=== PATIENT | female | born 1940 | race Caucasian/White ===

== ENCOUNTER 2016-05-26 13:16 | Emergency (ER) | payer MEDICARE, OTHER ==
[2015-04-07 13:04] VITALS: BMI 33.5
[~2016-05-26 13:16] MED LIST: CARDURA1 MG PO; CATAPRES0.1 MG PO; IMDUR30 MG PO; LASIX20 MG PO; LIPITOR40 MG PO; LISINOPRIL10 MG PO; LOPRESSOR25 MG PO; MOBIC7.5 MG PO; NITROSTAT0.4 MG; NORVASC5 MG PO; NYSTATIN1 PWD TOPICAL; PLAVIX75 MG PO; PRILOSEC20 MG PO; SYNTHROID25 MCG PO; TIROSINT88 MCG PO; ZOLOFT100 MG PO
[2016-05-26 14:13] LABS: BASOPHILS 0.5 % (0.0-2.0); EOSINOPHILS 3.9 % (0-7); HEMATOCRIT 41.9 % (36.0-48.0); HEMOGLOBIN 13.9 g/dL (12-16); IMMATURE GRANULOCYTES 0.2 % (0-5); LYMPHOCYTES 15.5 % (15-50); MCH 32.4 pg (26.0-34.0); MCHC 33.2 g/dL (31.0-37.0); MCV 97.7 fL (80.0-100.0); MEAN PLATELET VOLUME 10.8 fL (7.4-10.4); MONOCYTES 8.8 % (2-11); NEUTROPHILS 71.1 % (40-80); RBC 4.29 10x6/uL (4.00-5.40); RDW 13.9 % (11.5-14.5); WBC 6.5 10x3/uL (4.8-10.8)
[2016-05-26 14:19] LABS: PLATELET COUNT 155 10x3/uL (130-400)
[2016-05-26 15:09] LABS: ALBUMIN 3.7 g/dL (3.4-5.0); ALKALINE PHOSPHATASE 83 U/L (46-116); ALT (SGPT) 17 U/L (10-68); BILIRUBIN - TOTAL 0.43 mg/dL (0.2-1.3); CALC OSMOLALITY 286 mosm/kg (275-300); CALCIUM 8.7 mg/dL (8.5-10.1); CARBON DIOXIDE 26.3 mmol/L (21.0-32.0); CHLORIDE - SERUM 104 mmol/L (98-107); CREATININE - SERUM 0.7 mg/dL (0.6-1.3); GLUCOSE 119 mg/dL (74-106); POTASSIUM - SERUM 3.4 mmol/L (3.5-5.1); PROTEIN - SERUM 6.6 g/dL (6.4-8.2); SODIUM 142 mmol/L (136-145); UREA NITROGEN 20 mg/dL (7-18); eGFR NON AFRICAN AMERICAN 86 mL/min (90-120)
[2016-05-26 15:23] LABS: CKMB 1.2 U/L (0.0-3.6); CREATINE KINASE 78 UL (21-215); TROPONIN-I 0.023 ng/mL (0.000-0.060)
== END 2016-05-26 17:12 | disposition home or self-care (01) ==
LOC: D.ER 13:16
PROVIDERS: Emergency Medicine
DX: R07.89 Other chest pain (principal); S29.011A Strain of muscle and tendon of front wall of thorax, initial encounter; X58.XXXA Exposure to other specified factors, initial encounter; Y93.89 Activity, other specified; Y92.89 Other specified places as the place of occurrence of the external cause; I25.810 Atherosclerosis of coronary artery bypass graft(s) without angina pectoris; F32.9 Major depressive disorder, single episode, unspecified; I10 Essential (primary) hypertension; E78.5 Hyperlipidemia, unspecified; I45.10 Unspecified right bundle-branch block

== ENCOUNTER 2016-10-01 19:05 | Observation (INO) | payer MEDICARE, OTHER ==
[~2016-10-01] VITALS: Ht 160 cm; Wt 80.7 kg
--- NOTE | ~2016-10-01 | HEMODYNAMI ---
PATIENT:REBECA ANAYA MEDICAL RECORD: [id number] : 36 [id number] ADMISSION DATE: 10/01/16 Generatedon:10/03/201614:21 Patient name: REBECA ANAYA Patient #: [id number] SSN: : 1940 Date of study: 10/03/2016 Page: Of Hemodynamic Procedure Report Patient Data Patient Demographics Procedure consent was obtained First Name: REBECA Gender: Female Last Name: HÉCTOR : 1940 Middle Initial: A Age: 75 year(s) Patient #: [id number] Race: Ethnicity: or Additional ID: [id number] Contact details [address]: [address] [place] [address] State: [place] City: [place] Zip code: [address] Past Medical History Allergies: No known allergies Admission Admission Data Admission Date: 10/01/2016 Admission Time: 21:33 [facility] Lab Result Date: 10/03/2016 Lab Result Time: 0:00 Biochemistry Name Units Result Min Max BUN mg/dl 27 --(----)-* 7 18 Creatinine mg/dl 1 --(--*-)-- 0.6 1.3 CBC Name Units Result Min Max Hemoglobin g/dl 13.4 -*(----)-- 13.5 17.5 Procedure Procedure Types Cath Procedure Diagnostic Procedure C [facility] w/Coronaries w/Grafts Aortic Root Angiography Miscellaneous Procedures Moderate Sedation up to 30 minutes Procedure Description Procedure Date Procedure Date: 10/03/2016 Procedure Start Time: 13:57 Procedure End Time: 14:21 Procedure Staff Name Function Jesus Lara MD Performing Physician Becca Olivera RN Nurse Francisco Gifford RT Monitor Camilo Rome RT Scrub Procedure Data Cath Procedure Fluoroscopy Diagnostic fluoroscopy Total fluoroscopy Time: 3.1 time: 3.1 min min Diagnostic fluoroscopy Total fluoroscopy dose: 547 dose: 547 mGy mGy Contrast Material Contrast Material Type Amount (ml) Isovue 300 140 Entry Location Entry Primary Successful Side Size Upsize Upsize Entry Closure Succes sful Closure Location (Fr) 1 (Fr) 2 (Fr) Remarks Device Remarks Femoral Right 5 Fr Exoseal artery Estimated blood loss: 10 ml Diagnostic catheters Device Type Used For End Catheter Placement Cordis 5Fr JL 4.0 Procedure Catheter (MP) Cordis 5Fr 3DRC Catheter Procedure (MP) Diagnostic Infinity 5Fr Procedure JL 5 catheter Cordis 5Fr Pigtail Procedure Catheter (MP) Diagnostic Infinity 5Fr Procedure AR MOD Catheter Procedure Complications No complications Procedure Medications Medication Administration Route Dosage Oxygen NC 2 l/min Heparin Flush Bag added to field 2 bags (1000units/500ml NS) Lidocaine 2% added to field 20 Versed I.V. 1 mg Fentanyl I.V. 50 mcg Versed I.V. 1 mg Fentanyl I.V. 50 mcg Fentanyl I.V. 50 mcg Hemodynamics Rest HGB: 13.4 (g/dl) Heart Rate: 79 (bpm) Pressure Samples Time Site Value (mmHg) Purpose Heart Use Rate(bpm) 14:02 AO 50/19(32) Snapshot 73 14:08 LV 93/16,17 Snapshot 69 14:09 AO 86/55(69) Pullback 79 14:09 LV 85/11,14 Pullback 79 Gradients Valve Time Site 1 Site 2 Mean SEP/DFP Peak To Heart Use (mmHg) (sec/min) Peak Rate (mmHg) (bpm) Aortic 14:09 LV AO 0 79 85/11,14 86/55(69) Calculations Valve P-P Mean Valve Index Valve Source Name Gradient Area Flow (cm2) Aortic 0 0 Snapshots Pre Cath Intra NCS Post Cath Vital Signs Time Heart Resp SPO2 NIBP (mmHg) Rhythm Pain Sedation Rate (ipm) (%) Status Level (bpm) 13:46:02 86 17 96 157/90(143) NSR 0 (11) 10(A) , No pain 13:50:14 76 16 97 152/92(127) NSR 0 (11) 10(A) , No pain 13:54:38 93 21 97 149/81(118) NSR 0 (11) 10(A) , No pain 13:58:48 78 16 94 124/99(117) NSR 0 (11) 10(A) , No pain 14:03:02 87 16 95 102/65(80) NSR 0 (11) 9(A) , No pain 14:07:10 79 19 96 96/59(78) NSR 0 (11) 9(A) , No pain 14:11:20 80 19 95 97/57(75) NSR 0 (11) 9(A) , No pain 14:15:23 85 19 95 97/78(89) NSR 0 (11) 9(A) , No pain 14:19:31 84 16 96 112/62(89) NSR 0 (11) 9(A) , No pain Medications Time Medication Route Dose Verified Delivered Reason Notes Effec tiveness by by 13:49:13 Oxygen NC 2 Jesus Becca Per l/min St. Neal Olivera RN physician 13:49:23 Heparin Flush added 2 Jesus Jesus used for Bag to bags [facility] procedure (1000units/500ml field MD NIXON NS) 13:49:31 Lidocaine 2% added 20ml Jesus Jesus used for to vial [facility] procedure field MD NIXON 13:53:34 Versed I.V. 1 mg Jesus Becca for JaneNeal Olivera RN sedation 13:53:40 Fentanyl I.V. 50 Jesus Becca for [facility] Neal Olivera RN sedation 13:55:57 Versed I.V. 1 mg Jesus Becca for MclaughlinRamez Olivera RN sedation 13:56:00 Fentanyl I.V. 50 Jesus [place]cca [place] [facility] JaneNeal Olivera RN sedation 13:58:08 Fentanyl I.V. 50 Jesus Becca for [facility] Jarod ALVAREZ sedation Procedure Log Time Note 13:10:58 Camilo Rome RT(R) sent for patient. Start room use. 13:21:05 Time tracking: Regular hours 13:21:09 Plan of Care:Hemodynamics will remain stable., Cardiac rhythm will remain stable., Comfort level will be maintained., Respiratory function will remain adequate., Patient/ family verbilizes understanding of procedure., Procedure tolerated without complication., Recovers from procedure without complications.. 13:27:27 Lab results completed and on chart. 13:28:01 Lab Result : BUN 27 mg/dl 13:28:01 Lab Result : Creatinine 1 mg/dl 13:28:01 Lab Result : Hemoglobin 13.4 g/dl 13:28:11 H&P Date Dictated: 10/01/2016 Within 30 days and on chart.. 13:33:36 Patient received from PCU to CCL 3 Alert and oriented. Tansferred to table in Supine position. 13:33:38 Warm blankets applied, and mary hugger turned on for patient comfort. 13:33:39 Correct patient and procedure confirmed by team. 13:33:40 Signed procedure consent form obtained from patient. 13:33:42 ECG and BP/O2 sat monitors applied to patient. 13:44:54 Vital chart was started 13:44:56 Baseline sample Acquired. 13:44:59 Rhythm: sinus rhythm 13:45:01 Full Disclosure recording started 13:49:13 Oxygen 2 l/min NC was administered by Becca Olivera RN; Per physician; 13:49:23 Heparin Flush Bag (1000units/500ml NS) 2 bags added to field was administered by Jesus Lara MD; used for procedure; 13:49:31 Lidocaine 2% 20ml vial added to field was administered by Jesus Lara MD; used for procedure; 13:50:41 Pre-procedure instructions explained to patient. 13:50:42 Pre-op teaching completed and patient verbalized understanding. 13:50:45 Family in patients room. 13:50:46 Patient NPO since Midnight. 13:50:47 Is the patient allergic to Iodine/contrast media? No. 13:50:53 Is patient on blood thinner?Unknown 13:50:55 Patient diabetic? No. 13:50:58 Patient not . Patient is over age 55. 13:50:59 Previous problem with sedation/anesthesia? No ? 13:51:00 Snore? Yes 13:51:01 Sleep apnea? Yes 13:51:02 Deviated septum? No 13:51:02 Opens mouth fully? Yes 13:51:03 Sticks out tongue? Yes 13:51:05 Airway obstruction? No ? 13:51:07 Dentures? No ? 13:51:10 Pre procedure: right dorsailis pedis pulse 1+ Palpable, but thready & weak; easily obliterated 13:51:27 Unable to gain radial access last procedure. 13:51:31 Patient pain scale 0/10 ?. 13:51:38 IV patent on arrival in right antecubital with 0.9% NaCl at [facility]. 13:51:42 Right groin area was prepped with chlora-prep and draped in sterile fashion 13:51:43 Alarms reviewed by R. N. 13:51:44 Sharps counted by scrub and verified by R.N. 13:51:50 Use device set Femoral Dx 13:51:51 Tegaderm 4 x 4 opened to sterile field. 13:51:52 Acist Hand Control opened to sterile field. 13:51:52 Acist Manifold opened to sterile field. 13:51:53 Acist Syringe opened to sterile field. 13:51:53 Bag Decanter opened to sterile field. 13:51:54 Medline Cath Pack opened to sterile field. 13:51:54 Terumo 5Fr Saxton Sheath opened to sterile field. 13:51:56 St Cj 260cm J .035 wire opened to sterile field. 13:51:57 Diagnostic Infinity 5Fr Multipack catheter opened to sterile field. 13:53:16 --------ALL STOP TIME OUT------ 13:53:16 Final Timeout: patient, procedure, and site verified with staff and physician. All members of the team are in agreement. 13:53:18 Right groin site verified by team. 13:53:20 Physical assessment completed. ASA score P 2 - A patient with mild systemic disease as per Jesus Lara MD. 13:53:23 Sedation plan: IV Moderate Sedation Versed, Fentanyl 13:53:34 Versed 1 mg I.V. was administered by Becca Olivera RN; for sedation; 13:53:40 Fentanyl 50 mcg I.V. was administered by Becca Olivera RN; for sedation; 13:55:57 Versed 1 mg I.V. was administered by Becca Olivera RN; for sedation; 13:56:00 Fentanyl 50 mcg I.V. was administered by Becca Olivera RN; for sedation; 13:57:19 Procedure started. 13:57:22 Local anesthetic to right femoral artery with Lidocaine 2% by Jesus Lara MD.INITIAL ACCESS ONLY 13:58:08 Fentanyl 50 mcg I.V. was administered by Becca Olivera RN; for sedation; 13:58:17 Zero performed for pressure channel P1 14:01:41 A 5 Fr sheath was inserted into the Right Femoral artery 14:01:55 A Cordis 5Fr JL 4.0 Catheter (MP) was advanced over the wire and used for Procedure. 14:04:22 Catheter removed. unable to cannulate vessel. 14:04:28 A Cordis 5Fr 3DRC Catheter (MP) was advanced over the wire and used for Procedure. 14:04:45 SVG to RCA occluded. 14:04:48 Catheter removed. 14:05:00 A Diagnostic Infinity 5Fr JL 5 catheter was advanced over the wire and used for Procedure. 14:06:06 LCA angiography performed. 14:06:58 Catheter removed. 14:07:06 A Cordis 5Fr Pigtail Catheter (MP) was advanced over the wire and used for Procedure. 14:08:13 Zero performed for pressure channel P1 14:08:53 LV angiography performed. 14:08:55 LV gram done using SIDDIQI 14:09:06 EF : 55 % 14:10:07 Aortic Root visualized 14:10:11 Injector settings: Ml/sec: 15, Volume: 30, 14:10:15 Catheter removed. 14:12:09 A Diagnostic Infinity 5Fr AR MOD Catheter was advanced over the wire and used for Procedure. 14:14:22 RCA angiography performed. 14:14:33 Catheter removed. 14:14:44 Cordis 5Fr Exoseal opened to sterile field. 14:14:54 Sheath removed intact; hemostasis achieved with Exoseal to the Right Femoral artery. 14:14:56 Procedure ended.(Physican Out) 14:16:59 Fluoroscopy time 03.10 minutes. 14:17:08 Fluoroscopy dose: 547 mGy 14:17:08 Flurop Dose total: 547 14:17:13 Contrast amount:Isovue 300 140ml. 14:17:15 Sharps counted by scrub and verified by R.N. 14:17:16 Insertion/operative site no bleeding no hematoma. 14:17:19 Post-op/insertion site Right Femoral artery dressed using a 4 x 4 and Tegaderm. 14:17:20 Post Procedure Pulses reassessed and unchanged 14:17:23 Post-procedure physical assessment completed. ASA score P 2 - A patient with mild systemic disease as per Jesus Lara MD. 14:17:26 Post procedure rhythm: unchanged. 14:17:28 Estimated blood loss: 10 ml 14:17:29 Post procedure instruction explained to patient.Patient verbalizes understanding. 14:17:29 Patient needs reinforcement of post procedure teaching. 14:17:51 Procedure type changed to Cath procedure, Diagnostic procedure, LHC, LHC w/Coronaries w/Grafts, Aortic Root Angiography, Miscellaneous Procedures, Moderate Sedation up to 30 minutes 14:17:54 Procedure Complication : No complications 14:18:26 Procedure and supply charges have been captured, reviewed, submitted and are correct. 14:20:55 Vital chart was stopped 14:20:55 See physician's report for complete and final results. 14:20:57 Report given to PCU. 14:21:01 Patient transfered to PCU with Bed. 14:21:03 Procedure ended. 14:21:03 Full Disclosure recording stopped 14:21:07 End room use (Document Last) Device Usage Item Name Manufacture Quantity Catalog Hospital Part Current Minimal Lo t# / Number Charge Number Stock Stock Serial# Code Tegade 4 1 [id number] 237042 427897 5 x 4 Acist Hand Acist 1 30290 943422 869914 015100 5 Control [employer] Inc Acist Acist 1 92658 543657 263780 420616 5 Manifold [employer] Inc Acist Acist 1 17361 653288 077098 710500 20 Syringe [employer] Inc Bag Microtek 1 2002S 207106 40220 109477 5 Decanter [employer] Inc[employer] Medline Cardinal 1 [id number] 169721 88881 491077 5 Cath Pack Health Terumo 5Fr Terumo 1 [id number] 076255 283668 159486 [address] Cj St Cj 1 107450 601988 055831 957066 30 260cm J .035 wire Diagnostic Cardinal 1 [id number] 497926 50094 532557 30 Infinity Health 5Fr Multipack catheter Cordis 5Fr Cardinal 1 689451 5 JL 4.0 Health Catheter (MP) Cordis 5Fr Cardinal 1 212708 5 3DRC Health Catheter (MP) Diagnostic Cardinal 1 [id number] 261219 931773 476096 5 Infinity Health 5Fr JL 5 catheter Cordis 5Fr Cardinal 1 299237 5 Pigtail Health Catheter (MP) Diagnostic Cardinal 1 [id number] 754708 179573 047412 15 NoiseFreeity Health 5Fr AR MOD Catheter Cordis 5Fr Cardinal 1 EX500 715798 627525 015175 10 Flatora Signature Audit [place] Stage Time Signature Unsigned Intra-Procedure 10/03/2016 Francisco Gifford 2:21:25 PM RT(R) Signatures Monitor : Francisco Giffodr RT Signature : Date : Time : [place] [id number] [facility] [place] [address]
--- NOTE | ~2016-10-01 | OP ---
PATIENT NAME: REBECA ANAYA MEDICAL RECORD: [id number] :36 LOCATION:D.M2 D.2115 ADMISSION DATE:10/01/16 SURGEON: GRAY CARRASCO MD DATE OF OPERATION: 10/03/2016 PROCEDURE: Left heart catheterization, selective coronary angiography, right femoral approach. CATHETERS: A 5-Kiswahili sheath, 5/4 left and right Librado, 5/4 pig. The procedure was well tolerated. The patient returned to the aguilar, sheath removed. ExoSeal device placed. FINDINGS: Left ventriculography in the 30-degree SIDDIQI view: Normal wall motion, normal systolic function. On aortic root injection, aortic root shows no open grafts with normal sized roots, mild tortuosity. CORONARY ANATOMY: LEFT MAIN: Left main is free of disease. LAD: Free of disease in the diagonal system. CIRCUMFLEX: Free of disease in the marginal system. RIGHT CORONARY ARTERY: Codominant system free of disease. IMPRESSION: 1. Normal aortic root with exception of mild tortuosity. 2. Normal left ventricular function. 3. Normal coronary anatomy. TRANSINT:[id number] Voice Confirmation ID: [id number] DOCUMENT ID: [id number] GRAY CARRASCO MD CC: [id number] DICTATION DATE: 10/03/16 1431 TRANSPORTATION ATTENDANT: 10/03/16 1744 DIS IN 10/03/16 [facility] [address] [place] [address]
[~2016-10-01 19:05] MED LIST changes: -NITROSTAT0.4 MG; +NITROSTAT0.4 MG SL
[2016-10-01 19:43] LABS: BASOPHILS 0.3 % (0-2); EOSINOPHILS 4.1 % (0-7); HEMATOCRIT 42.8 % (36.0-48.0); HEMOGLOBIN 14.3 g/dL (12-16); IMMATURE GRANULOCYTES 0.3 % (0-5); LYMPHOCYTES 23.5 % (15-50); MCH 32.2 pg (26.0-34.0); MCHC 33.4 g/dL (31.0-37.0); MCV 96.4 fL (80.0-100.0); MONOCYTES 8.3 % (2-11); NEUTROPHILS 63.5 % (40-80); PLATELET COUNT 161 10x3/uL (130-400); RBC 4.44 10x6/uL (4.00-5.40); RDW 13.2 % (11.5-14.5); WBC 6.2 10x3/uL (4.8-10.8)
[2016-10-01 20:08] LABS: ALBUMIN 3.7 g/dL (3.4-5.0); ALKALINE PHOSPHATASE 111 U/L (46-116); ALT (SGPT) 25 U/L (10-68); BILIRUBIN - TOTAL 0.38 mg/dL (0.2-1.3); CALC OSMOLALITY 280 mosm/kg (275-300); CALCIUM 9.3 mg/dL (8.5-10.1); CARBON DIOXIDE 28.9 mmol/L (21.0-32.0); CHLORIDE - SERUM 103 mmol/L (98-107); CREATININE - SERUM 0.9 mg/dL (0.6-1.3); GLUCOSE 104 mg/dL (74-106); POTASSIUM - SERUM 3.4 mmol/L (3.5-5.1); PROTEIN - SERUM 7.2 g/dL (6.4-8.2); SODIUM 139 mmol/L (136-145); UREA NITROGEN 22 mg/dL (7-18); eGFR NON AFRICAN AMERICAN 64 mL/min (90-120)
[2016-10-01 20:20] LABS: CHOL - HDL RATIO 3.5 ratio (2.3-4.1); CHOLESTEROL, TOTAL 163 mg/dL (0-200); CKMB 0.8 U/L (0.0-3.6); CREATINE KINASE 59 UL (21-215); HDL CHOLESTEROL 46 mg/dL (32-96); LDL CHOLESTEROL 75 mg/dL (0-100); LDL-HDL RATIO 1.6 ratio (1.5-3.5); TRIGLYCERIDE 213 mg/dL (30-200); TROPONIN-I 0.024 ng/mL (0.000-0.060)
--- NOTE | 2016-10-01 23:00 | NUR ---
ADMIT TO ROOM 2114 FROM ER. ALERT/ORIENTED. O2 @ 2L/NC WITH MILD SHORTNESS OF BREATH. PIV SALINE LOCKED IN LFA. ADMISSION HISTORY AND ASSESSMENT COMPLETED. REVIEWED HOME MEDS LISTED FROM LAST ADMIT AND PT COULD ONLY TELL NURSE THAT FAR SHE CAN RECALL, NOTHING HAS CHANGED. NOTED NEW ORDER AT [facility] FOR [facility] AND PT AGREED SHE DID START THAT RECENTLY. PT HAS NITRO TRANSDERMAL PATCH ON RIGHT UPPER CHEST WALL. TELEMETRY STARTED, PT SB 55. INITIATE PLAN OF CARE.
[2016-10-01] MEDS ORDERED: ZANTAC150 MG PO (23:17)
[2016-10-01] MEDS ORDERED: ISOSORBIDE MONO30 M1 PO (23:18)
[2016-10-02] VITALS: BP 181/98
[2016-10-02 01:39] LABS: CKMB 0.8 U/L (0.0-3.6); CREATINE KINASE 57 UL (21-215); TROPONIN-I 0.021 ng/mL (0.000-0.060)
[2016-10-02 01:40] VITALS: BP 181/98; BMI 31.6
[2016-10-02 04:00] VITALS: BP 126/63
--- NOTE | 2016-10-02 04:45 | NUR ---
PT C/O CHEST PRESSURE. MEDICATED WITH NITRO 0.4MG AND WITHIN 5 MINUTES PT WAS FEELING DECREASED PRESSURE. WILL MONITOR.
[2016-10-02 08:00] VITALS: BP 150/86
[2016-10-02 08:07] LABS: BASOPHILS 0.2 % (0-2); EOSINOPHILS 3.2 % (0-7); HEMATOCRIT 40.8 % (36.0-48.0); HEMOGLOBIN 13.4 g/dL (12-16); IMMATURE GRANULOCYTES 0.4 % (0-5); LYMPHOCYTES 18.4 % (15-50); MCH 31.8 pg (26.0-34.0); MCHC 32.8 g/dL (31.0-37.0); MCV 96.7 fL (80.0-100.0); MEAN PLATELET VOLUME 11.3 fL (7.4-10.4); MONOCYTES 8.7 % (2-11); NEUTROPHILS 69.1 % (40-80); PLATELET COUNT 150 10x3/uL (130-400); RBC 4.22 10x6/uL (4.00-5.40); RDW 13.5 % (11.5-14.5); WBC 5.7 10x3/uL (4.8-10.8)
[2016-10-02 08:30] LABS: CALC OSMOLALITY 283 mosm/kg (275-300); CARBON DIOXIDE 28.8 mmol/L (21.0-32.0); CHLORIDE - SERUM 103 mmol/L (98-107); CKMB 0.4 U/L (0.0-3.6); CREATINE KINASE 43 UL (21-215); GLUCOSE 101 mg/dL (74-106); POTASSIUM - SERUM 3.5 mmol/L (3.5-5.1); SODIUM 140 mmol/L (136-145); TROPONIN-I 0.019 ng/mL (0.000-0.060); UREA NITROGEN 27 mg/dL (7-18); eGFR NON AFRICAN AMERICAN 57 mL/min (90-120)
--- NOTE | 2016-10-02 10:46 | NUR ---
TELEMETRY SR. NO C/O C/P NOTED. FAMILY MEMBER AT BS. CALL LIGHT IN REACH. WILL CONT. PLAN OF CARE.
[2016-10-02 12:50] VITALS: BP 121/58
--- NOTE | 2016-10-02 13:39 | NUR ---
CONSENTS SIGNED FOR [facility].
[2016-10-02 20:00] VITALS: BP 124/68
--- NOTE | 2016-10-02 20:43 | NUR ---
PT RESTING IN BED. C/O CHEST PRESSURE/SOB. O2 WAS OFF. REPLACED O2 @ 2L/NC. MEDICATED WITH MORPHINE 4MG SIVP SINCE PT STILL HAS A HEADACHE FROM HER NITRO TRANSDERMAL PATCH. SALINE LOCK TO LFA. WILL MONITOR.
--- NOTE | 2016-10-02 20:59 | NUR ---
CHECK BACK ON PATIENT AND SHE IS NOW RESTING, STATES CHEST PRESSURE/PAIN LESSENED. SB 55 ON TELEMETRY. WILL MONITOR AND CPOC. PT IS SCHEDULED FOR A LEFT HEART CATH IN THE AM.
[2016-10-03 04:00] VITALS: BP 132/79
--- NOTE | 2016-10-03 07:30 | NUR ---
RECEIVED PT IN BED EYES CLOSED RESP UNLABORED NAD NOTED WILL CONTINUE TO MONITOR
[2016-10-03 08:57] VITALS: BP 140/74
[2016-10-03 11:58] VITALS: BP 129/74
--- NOTE | 2016-10-03 12:37 | NUR ---
LFA IV SITE INFILTRATED SLIGHT EDEMA NOTED TO SITE DCD SALINE LOCK TO LFA WITH 20 GA IV CATH INTACT RESITED SALINE LOCK TO RAC WITH 22 GA IV CATH X 1 STICK USING ASEPTIC TECHNIQUE PREOP MEDS GIVEN PT TOLERATED WELL
--- NOTE | 2016-10-03 13:12 | NUR ---
PT TO ADVERTISING JOB TITLES VIA BED IN STABLE CONDITION
[2016-10-03 13:16] VITALS: Ht 160 cm; Wt 80.7 kg
--- NOTE | 2016-10-03 17:45 | NUR ---
REVIEWED DISCHARGE INSTRUCTIONS WITH PT AND SON STATE UNDERSTANDING COPY GIVEN TO PT SALINE LOCK DCD TO RAC WITH 22 GA IV CATH INTACT SITE FREE OF REDNESS OR EDEMA PT DISCHARGED HOME IN STABLE CONDITION WITH ALL PERSONAL BELONGINGS LEFT UNIT VIA W/C
== END 2016-10-03 17:45 | disposition home or self-care (01) ==
LOC: D.ER 19:05 → OBSVTIME 21:33 → D.M2 21:33
PROVIDERS: Emergency Medicine; ADMIT Internal Medicine Cardiovascular Disease
DX: R07.89 Other chest pain (principal); I25.10 Atherosclerotic heart disease of native coronary artery without angina pectoris; Z95.5 Presence of coronary angioplasty implant and graft; I10 Essential (primary) hypertension; E78.5 Hyperlipidemia, unspecified

== ENCOUNTER 2018-06-03 15:52 | Emergency (ER) | payer MEDICARE, OTHER ==
[~2018-06-03] VITALS: Ht 160 cm; Wt 73.6 kg
[~2018-06-03 15:52] MED LIST changes: +ISOSORBIDE MONO30 M1 PO; +ZANTAC150 MG PO
[2018-06-03 15:53] VITALS: Ht 160 cm; Wt 73.6 kg
[2018-06-03] MEDS ORDERED: SEROQUEL25 MG PO (16:01)
[2018-06-03] MEDS ORDERED: NEXIUM40 MG PO (16:02)
[2018-06-03] MEDS ORDERED: METOPROLOL TART50 MG PO (16:02)
[2018-06-03] MEDS ORDERED: NORVASC10 MG PO (16:02)
[2018-06-03] MEDS ORDERED: ZESTRIL20 MG PO (16:03)
[2018-06-03] MEDS ORDERED: ZOLOFT50 MG PO (16:03)
[2018-06-03 16:40] LABS: BASOPHILS 0.7 % (0-2); EOSINOPHILS 1.6 % (0-7); HEMOGLOBIN 14.9 g/dL (12-16); IMMATURE GRANULOCYTES 0.3 % (0-5); LYMPHOCYTES 27.1 % (15-50); MCH 33.8 pg (26.0-34.0); MCHC 33.9 g/dL (31.0-37.0); MCV 99.8 fL (80.0-100.0); MEAN PLATELET VOLUME 11.2 fL (7.4-10.4); MONOCYTES 4.8 % (2-11); NEUTROPHILS 65.5 % (40-80); PLATELET COUNT 164 10x3/uL (130-400); RBC 4.41 10x6/uL (4.00-5.40); RDW 14.2 % (11.5-14.5); WBC 6.9 10x3/uL (4.8-10.8)
[2018-06-03 16:52] LABS: APTT 35.8 SECONDS (22.8-39.4); INR 0.99 (0.85-1.17); PROTIME 12.6 SECONDS (11.6-15.0)
[2018-06-03 16:55] LABS: ALBUMIN 4.2 g/dL (3.4-5.0); ALKALINE PHOSPHATASE 76 U/L (46-116); ALT (SGPT) 36 U/L (10-68); CALC OSMOLALITY 290 mosm/kg (275-300); CALCIUM 9.1 mg/dL (8.5-10.1); CARBON DIOXIDE 27.9 mmol/L (21.0-32.0); CHLORIDE - SERUM 103 mmol/L (98-107); CREATININE - SERUM 1.1 mg/dL (0.6-1.3); GLUCOSE 100 mg/dL (74-106); POTASSIUM - SERUM 3.5 mmol/L (3.5-5.1); PROTEIN - SERUM 7.7 g/dL (6.4-8.2); SODIUM 144 mmol/L (136-145); UREA NITROGEN 25 mg/dL (7-18); eGFR NON AFRICAN AMERICAN 51 mL/min (90-120)
[2018-06-03 17:07] LABS: CREATINE KINASE 299 UL (21-215); PRO BNP 873 pg/mL (0-450); TROPONIN-I 0.024 ng/mL (0.000-0.060)
[2018-06-03 18:19] LABS: APPEARANCE CLOUDY (CLEAR); BILIRUBIN NEGATIVE (NEGATIVE); COLOR YELLOW (YELLOW); GLUCOSE NEGATIVE (NEGATIVE); KETONE NEGATIVE (NEGATIVE); NITRITE NEGATIVE (NEGATIVE); PROTEIN 1+ mg/dL (NEGATIVE); SPECIFIC GRAVITY 1.025 (1.005-1.020); UROBILINOGEN NORMAL (NORMAL)
[2018-06-03 18:20] LABS: EPITHELIAL CELLS 0-5 /hpf (0-5); RED CELLS - URINE 0-5 /hpf (0-5); WHITE CELLS - URINE NSEEN /hpf (0-5)
[2018-06-03 20:14] VITALS: BP 175/86
--- NOTE | 2018-06-05 11:18 | HP ---
PATIENT: REBECA WORRELL MEDICAL RECORD: [id number] ACCOUNT: [id number] LOCATION:[facility] : 36 ADMISSION DATE: 06/03/18 PCP: NOEMI LA MD HISTORY AND PHYSICAL EXAMINATION DIAGNOSES: 1. Unstable angina. 2. Coronary artery disease. 3. Previous PTCA and stent. 4. Hypertension. 5. Hyperlipidemia. HISTORY: Mrs. Worrell presents with anginal symptomatology times 2 days in a worsening fashion. She does have history of coronary artery disease and previous stents, but this has been a number of years ago. Her EKG is with nonspecific ST-T abnormalities. PHYSICAL EXAMINATION: GENERAL APPEARANCE: Well-nourished, well-developed, appears stated age. Level of distress, comfortable. PSYCHIATRIC: Mental status, alert, normal affect. Orientation, oriented to time, place and person. EYES: Lids and conjunctiva, noninjected. No discharge, no pallor. ENT: Lips, teeth, gums, normal dentition. Oropharynx, no cyanosis, no pallor. NECK: Carotid arteries, bilateral normal upstroke, no bruits, no thrills. JUGULAR VEINS: No jugular venous pressure or distention. CERVICAL LYMPH NODES: Nontender, nonenlarged. THYROID: Not enlarged. Nontender. No nodules. LUNGS: Respiratory effort, unlabored. CHEST: Normal curvature. No thoracic deformity. No chest wall tenderness. Percussion, resonant. Auscultation, clear. No wheezes, no rales, no rhonchi. CARDIOVASCULAR: Precordial exam, nondisplaced. No heaves or pericardial thrills. Rate and rhythm, regular. Heart sounds, normal S1, normal S2. No S3, no gallop, no rub. Systolic murmur, not heard. Diastolic murmur, not heard. EXTREMITIES: No cyanosis, no edema. Peripheral pulses, full and equal in all extremities, except as noted. No bruits appreciated. ABDOMEN: Soft, nondistended. Normal aorta. No bruit. Nontender. No masses. Liver, nontender, no hepatomegaly. Spleen, nontender, no splenomegaly. MUSCULOSKELETAL: No joint tenderness. No joint swelling. No erythema. NEUROLOGICAL: Normal gait, normal strength, normal tone. SKIN: Warm and dry. OVERALL IMPRESSION: Unstable anginal symptomatology. We will proceed with coronary angiography in the a.m., loading with Plavix tonight. Further care depends upon findings of the angiography. TRANSINT:[id number] Voice Confirmation ID: [id number] DOCUMENT ID: [id number] HISTORY AND PHYSICAL [id number] REBECA WORRELL JEFFREY MD at 1118 CC: [id number] DICTATION DATE: 06/03/18 175 NUT PACKER: 06/03/18 180 DEP ER 06/03/[address] [address]
== END 2018-06-03 20:15 | disposition other institution (70) ==
LOC: D.ER 15:52
PROVIDERS: Family Medicine
DX: R07.9 Chest pain, unspecified (principal)

== ENCOUNTER 2018-06-03 18:12 | Outpatient (CLI) | payer MEDICARE, OTHER ==
[~2018-06-03] VITALS: Ht 160 cm; Wt 74.6 kg
--- NOTE | ~2018-06-03 | HEMODYNAMI ---
PATIENT:REBECA ANAYA MEDICAL RECORD: [id number] : 36 [facility] [id number] ADMISSION DATE: 06/03/18 Generatedon:06/04/20189:54 Patient name: REBECA ANAYA Patient #: [id number] SSN: : 1940 Date of study: 06/04/2018 Page: Of Hemodynamic Procedure Report Patient Data Patient Demographics Procedure consent was obtained First Name: REBECA Gender: Female Last Name: HÉCTOR : 1940 Middle Initial: A Age: 77 year(s) Patient #: [id number] Race: Ethnicity: or Additional ID: [id number] Contact details Address: [address] [place] [address] State: [place] City: [place] Zip code: [address] Past Medical History Allergies: No known allergies Admission Admission Data Admission Date: 06/03/2018 Admission Time: 18:12 Room #: [facility] Lab Results Lab Result Date: 06/04/2018 Lab Result Time: 0:00 Biochemistry Name Units Result Min Max BUN mg/dl 24 --(----)-* 7 18 Creatinine mg/dl 1 --(--*-)-- 0.6 1.3 CBC Name Units Result Min Max Hemoglobin g/dl 14.4 --(*---)-- 13.5 17.5 Procedure Procedure Types Cath Procedure Diagnostic Procedure LHC LHC w/Coronaries w/Grafts Procedure Description Procedure Date Procedure Date: 06/04/2018 Procedure Start Time: 9:38 Procedure End Time: 9:47 Procedure Staff Name Function Dimas Zabala MD Performing Physician Bethanie Hollins RT Monitor Francisco Gifford RT Scrub Ana Torres RN Nurse Sven Kaur RN Veterinarian Assistant Procedure Data Cath Procedure Fluoroscopy Diagnostic fluoroscopy Total fluoroscopy Time: 2.4 time: 2.4 min min Diagnostic fluoroscopy Total fluoroscopy dose: 533 dose: 533 mGy mGy Contrast Material Contrast Material Type Amount (ml) Isovue 300 54 Entry Location Entry Primary Successful Side Size Upsize Upsize Entry Closure Succes sful Closure Location (Fr) 1 (Fr) 2 (Fr) Remarks Device Remarks Femoral Right 5 Fr Exoseal artery Estimated blood loss: 10 ml Diagnostic catheters Device Type Used For End Catheter Placement DIAGNOSTIC Pigtail 5Fr Procedure catheter ([id number]) DIAGNOSTIC JL 5 5Fr Procedure catheter ([id number]) DIAGNOSTIC AR2 MOD 5 Fr Procedure catheter ([id number]) Procedure Complications No complications Procedure Medications Medication Administration Route Dosage Oxygen etCO2 Nasal cannula 2 l/min Lidocaine 2% added to field 20 Heparin Flush Bag added to field 2 bags (1000units/500ml NS) 0.9% NaCl I.V. 100 ml/hr Fentanyl I.V. 50 mcg Versed I.V. 0.5 mg Hemodynamics Rest HGB: 14.4 (g/dl) Heart Rate: 66 (bpm) Snapshots Pre Cath Intra NCS Post Cath Vital Signs Time Heart Resp SPO2 etCO2 NIBP (mmHg) Rhythm Pain Sedation Rate (ipm) (%) (mmHg) Status Level (bpm) 9:18:18 65 16 94 0 161/98(138) NSR 0 (11) 9(A) , No pain 9:22:38 62 15 93 30.4 150/96(116) NSR 0 (11) 9(A) , No pain 9:26:56 63 17 95 31.1 146/94(117) NSR 0 (11) 9(A) , No pain 9:31:12 66 21 96 22.8 131/90(106) NSR 0 (11) 9(A) , No pain 9:35:28 64 16 93 27.3 129/78(105) NSR 0 (11) 9(A) , No pain 9:39:36 64 24 95 9.8 115/86(100) NSR 0 (11) 9(A) , No pain 9:43:46 61 16 94 0 124/77(100) NSR 0 (11) 9(A) , No pain 9:48:00 66 11 94 0 119/79(94) NSR 0 (11) 9(A) , No pain Medications Time Medication Route Dose Verified Delivered Reason Notes Effe ctiveness by by 9:18:22 Oxygen etCO2 2 Dimas Perez used for Nasal l/min Sagrario Torres RN procedure cannula 9:29:09 Lidocaine 2% added 20ml Dimas Cochran for local to vial Sagrario Zabala MD anesthetic field 9:29:15 Heparin Flush added 2 Dimas Cochran used for Bag to bags Sagrario Zabala MD procedure (1000units/500ml field NS) 9:29:25 0.9% NaCl I.V. 100 Dimas Perez Per ml/hr Sagrario Torres RN physician 9:38:15 Fentanyl I.V. 50 Dimas Perez for mcg Sagrario Torres RN sedation 9:38:22 Versed I.V. 0.5 Dimas Perez for mg Sagrario Torres RN sedation Procedure Log Time Note 8:50:25 Signed procedure consent form obtained from patient. 8:50:26 Time tracking: Regular hours (M-F 7:00 - 5:00) 8:50:32 Plan of Care:Hemodynamics will remain stable., Cardiac rhythm will remain stable., Comfort level will be maintained., Respiratory function will remain adequate., Patient/ family verbilizes understanding of procedure., Procedure tolerated without complication., Recovers from procedure without complications.. 8:50:33 Diagnostic Cath status Elective 9:04:34 Sven Kaur RN sent for patient. Start room use. 9:12:46 Patient received from PCU to CCL 1 Alert and oriented. Tansferred to table in Supine position. 9:12:48 Warm blankets applied, and mary hugger turned on for patient comfort. 9:12:48 Correct patient and procedure confirmed by team. 9:12:49 ECG and BP/O2 sat monitors applied to patient. 9:17:07 Vital chart was started 9:18:22 Oxygen 2 l/min etCO2 Nasal cannula was administered by Ana Torres RN; used for procedure; 9:22:57 Rhythm: sinus rhythm 9:22:58 Full Disclosure recording started 9:23:00 Pre-procedure instructions explained to patient. 9:23:00 Pre-op teaching completed and patient verbalized understanding. 9:23:02 Family in patients room. 9:23:03 Patient NPO since Midnight. 9:23:09 Patient allergic to No known allergies 9:23:12 Was the patient premedicated? No 9:23:14 Is patient on blood thinner?No 9:23:16 Patient diabetic? No. 9:23:19 Patient not . Patient is over age 55. 9:23:27 Previous problem with sedation/anesthesia? No ? 9:23:28 Snore? Yes 9:23:29 Sleep apnea? Yes 9:23:30 Deviated septum? No 9:23:31 Opens mouth fully? Yes 9:23:32 Sticks out tongue? Yes 9:23:33 Airway obstruction? No ? 9:23:36 Dentures? No ? 9:23:38 Pre procedure: right dorsailis pedis pulse 1+ Palpable, but thready & weak; easily obliterated 9:23:41 Patient pain scale 0/10 ?. 9:27:59 IV patent on arrival in left hand with 0.9% NaCl at [facility]. 9:28:35 Lab Result : BUN 24 mg/dl 9::35 Lab Result : Creatinine 1 mg/dl 9::35 Lab Result : Hemoglobin 14.4 g/dl 9::38 Lab results completed and on chart. 9:28:42 Right groin area was prepped with chlora-prep and draped in sterile fashion 9:28:43 Alarms reviewed by R. N. 9:28:43 Sharps counted by scrub and verified by R.N. 9:28:56 Use device set CATH PACK 9:28:57 ACIST Syringe (46321) opened to sterile field. 9:28:58 ACIST Hand Control (56328) opened to sterile field. 9:28:58 ACIST Manifold (70136) opened to sterile field. 9:28:58 Medline Cath Pack ([id number]) opened to sterile field. 9:28:59 Bag Decanter (2002) opened to sterile field. 9:28:59 DIAGNOSTIC WIRE .035 260cm J wire (845709) opened to sterile field. 9:29:09 Lidocaine 2% 20ml vial added to field was administered by Dimas Zabala MD; for local anesthetic; 9:29:15 Heparin Flush Bag (1000units/500ml NS) 2 bags added to field was administered by Dimas Zabala MD; used for procedure; 9:29:25 0.9% NaCl 100 ml/hr I.V. was administered by Ana Torres RN; Per physician; 9:32:58 Zero performed for pressure channel P1 9:37:48 --------ALL STOP TIME OUT------ 9:37:49 Final Timeout: patient, procedure, and site verified with staff and physician. All members of the team are in agreement. 9:37:51 Right groin site verified by team. 9:37:54 Fire Safety Assessment: A--An alcohol-based skin anteseptic being used preoperatively., C--Open oxygen or nitrous oxide is being used., D--An ESU, laser, or fiber-optic light is being used. 9:37:56 Physical assessment completed. ASA score P 2 - A patient with mild systemic disease as per Dimas Zabala MD. 9:37:58 Sedation plan: IV Moderate Sedation Medication:Versed, Fentanyl 9:38:06 Baseline sample Acquired. 9:38:12 Procedure started. 9:38:15 Fentanyl 50 mcg I.V. was administered by Ana Torres RN; for sedation; 9:38:22 Versed 0.5 mg I.V. was administered by Ana Torres RN; for sedation; 9:38:52 Local anesthetic to right femoral artery with Lidocaine 2% by Dimas Zabala MD.INITIAL ACCESS ONLY 9:39:16 SHEATH 5FR Retsof ([id number]) opened to sterile field. 9:40:03 A 5 Fr sheath was inserted into the Right Femoral artery 9:40:17 A DIAGNOSTIC Pigtail 5Fr catheter ([id number]) was advanced over the wire and used for Procedure. 9:41:48 LV gram done using SIDDIQI 9:41:51 Injector settings: Ml/sec: 10, Volume: 20, 9:42:06 EF : 40 % 9:42:08 Catheter removed. 9:42:35 A DIAGNOSTIC JL 5 5Fr catheter ([id number]) was advanced over the wire and used for Procedure. 9:43:36 LCA angiography performed. 9:43:44 Catheter removed. 9:44:26 A DIAGNOSTIC AR2 MOD 5 Fr catheter ([id number]) was advanced over the wire and used for Procedure. 9:44:59 RCA angiography performed. 9:45:30 Catheter removed. 9:45:53 EXOSEAL 5Fr (EX500) opened to sterile field. 9:46:02 Sheath removed intact; hemostasis achieved with Exoseal to the Right Femoral artery. 9:46:03 Procedure ended.(Physican Out) 9:46:20 Fluoroscopy time 02.40 minutes. 9:46:24 Flurop Dose total: 533 9:46:24 Fluoroscopy dose: 533 mGy 9:46:27 Contrast amount:Isovue 300 54ml. 9:46:38 Post-procedure physical assessment completed. ASA score P 2 - A patient with mild systemic disease as per Dimas Zabala MD. 9:46:42 Post procedure rhythm: sinus rhythm 9:46:44 Estimated blood loss: 10 ml 9:46:45 Post procedure instruction explained to patient.Patient verbalizes understanding. 9:46:45 Patient needs reinforcement of post procedure teaching. 9:46:56 Procedure type changed to Cath procedure, Diagnostic procedure, LHC, LHC w/Coronaries w/Grafts 9:47:40 Procedure and supply charges have been captured, reviewed, submitted and are correct. 9:47:42 Procedure Complication : No complications 9:47:43 Vital chart was stopped 9:47:44 See physician's report for complete and final results. 9:47:47 Report given to PCU. 9:47:49 Patient transfered to PCU with Bed. 9:47:51 Procedure ended. 9:47:51 Full Disclosure recording stopped 9:47:56 End room use (Document Last) Device Usage Item Name Manufacture Quantity Catalog Hospital Part Current Minimal L ot# / Number Charge Number Stock Stock Serial# Code ACIST Acist 1 26845 [id number] 643718 [id number] 20 Syringe Medical (30241) Systems Inc ACIST Hand Acist 1 35263 648464 708046 301461 5 Control Medical (34939) Systems Inc ACIST Acist 1 34111 001701 116263 350393 5 Manifold Medical (36145) Systems Inc Medline Medline 1 [id number] 797515 40222 744178 5 Cath Pack ([id number]) Bag Microtek 1 091885 49400 898773 5 Decanter Medical Inc. () DIAGNOSTIC St Cj 1 580115 275551 513577 923633 30 WIRE .035 260cm J wire (926555) SHEATH 5FR Terumo 1 KNB677 748498 922827 166890 5 Retsof (GEI007) DIAGNOSTIC Cardinal 1 [id number] 265416 022598 384286 5 Pigtail 5Fr Health catheter (521733R) DIAGNOSTIC Cardinal 1 [id number] 295064 410264 345814 5 JL 5 5Fr Health catheter (629234U) DIAGNOSTIC Cardinal 1 [id number] 962522 658022 825057 20 AR2 MOD 5 Health Fr catheter (614543H) EXOSEAL 5Fr Cardinal 1 EX500 475605 479022 686939 10 (EX500) Health Signature Audit [place] Stage Time Signature Unsigned Intra-Procedure 06/04/2018 Bethanie Hollins 9:54:14 AM RT(R) Signatures Monitor : Bethanie Hollins Signature : RT Date : Time : [address] [address]
[~2018-06-03 18:12] MED LIST changes: +METOPROLOL TART50 MG PO; +NEXIUM40 MG PO; +NORVASC10 MG PO; +SEROQUEL25 MG PO; +ZESTRIL20 MG PO; +ZOLOFT50 MG PO
[2018-06-03 20:00] VITALS: BP 183/103
[2018-06-03 22:33] VITALS: BP 183/103; Ht 160 cm; Wt 74.6 kg
[2018-06-04] VITALS: BP 147/92
[2018-06-04 04:00] VITALS: BP 137/91
[2018-06-04 05:55] LABS: ANION GAP 14.2 mmol/L (8-16); CALCIUM 8.8 mg/dL (8.5-10.1); CARBON DIOXIDE 28.7 mmol/L (21.0-32.0)
[2018-06-04 06:10] LABS: BASOPHILS 0.5 % (0-2); EOSINOPHILS 2.6 % (0-7); HEMATOCRIT 43.4 % (36.0-48.0); HEMOGLOBIN 14.4 g/dL (12-16); MCH 33.2 pg (26.0-34.0); MCHC 33.2 g/dL (31.0-37.0); MEAN PLATELET VOLUME 11.2 fL (7.4-10.4); MONOCYTES 6.1 % (2-11); NEUTROPHILS 57.8 % (40-80); PLATELET COUNT 142 10x3/uL (130-400); RBC 4.34 10x6/uL (4.00-5.40); RDW 14.4 % (11.5-14.5)
[2018-06-04 06:18] LABS: WBC 4.3 10x3/uL (4.8-10.8)
[2018-06-04 06:29] LABS: POTASSIUM - SERUM 2.9 mmol/L (3.5-5.1)
[2018-06-04 08:21] VITALS: BP 145/82
--- NOTE | 2018-06-05 11:19 | OP ---
PATIENT NAME: REBECA ANAYA MEDICAL RECORD: [id number] :36 LOCATION:[facility] ADMISSION DATE: SURGEON: WALTER CARRILLO MD DATE OF OPERATION: 06/04/2018 PROCEDURES: 1. Left heart catheterization. 2. Selective coronary angiography. 3. Left ventriculogram. INDICATION: Chest pain compatible with angina and coronary artery disease. PROCEDURE IN DETAIL: After informed consent was obtained and after a detailed description of the risks, benefits as well as alternative therapies, the patient elected to proceed with angiogram and heart catheterization. The right femoral area was prepped and draped in normal sterile fashion. Right femoral artery was cannulated via modified Seldinger technique with placement of 5-Swedish sheath. All catheters exchanged through this sheath. FINDINGS: Left ventriculogram was performed in a standard 30-degree SIDDIQI view, reveals good cardiac wall motion throughout all segments. Overall ejection fraction 55%. SELECTIVE CORONARY ANGIOGRAPHY: 1. Left main is with no significant angiographic disease. 2. Left anterior descending has moderate irregularities, but no flow-limiting stenosis. 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 3. The left circumflex has moderate irregularities, but no flow-limiting stenosis. 4. Right coronary artery has moderate irregularities, but no flow-limiting stenosis. 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 Center medical management on treatment of the coronary artery disease and cardiac risk factors. TRANSINT:[id number] Voice Confirmation ID: [id number] DOCUMENT ID: [id number] WALTER CARRILLO MD at 1119 CC: [id number] DICTATION DATE: 06/04/18 0949 AGILITY INSTRUCTOR: 06/04/18 1022 DEP CLI 06/04/18 [place] [id number] [place] [id number]
--- NOTE | 2018-06-05 11:19 | DS ---
PATIENT:REBECA WORRELL :36 MEDICAL RECORD: [id number] DISCHARGE SUMMARY ADMISSION DATE: 06/03/18 DISCHARGE DATE: 06/04/18 DISCHARGE DIAGNOSES: 1. Chest pain compatible with angina. 2. Coronary artery disease. 3. Hypertension. 4. Hyperlipidemia. HOSPITAL COURSE: Ms. Worrell presents with anginal symptomatology; however, cardiac catheterization reveals no significant coronary artery disease. Initially, her blood pressure was quite elevated. As this came down, her chest pain resolved. Standard medical management for treatment of the hypertension. TRANSINT:[id number] Voice Confirmation ID: [id number] DOCUMENT ID: [id number] WALTER CARRILLO MD at 1119 CC: [id number] DICTATION DATE: 06/04/1850 DENTISTRY TEACHER: 06/04/182211 DEP CLI 06/04/[address] [address]
== END 2018-06-04 13:27 | disposition home or self-care (01) ==
LOC: D.OPS 18:12 → D.M2 18:12 → D.OPS 06-04 13:27
PROVIDERS: Internal Medicine Interventional Cardiology
DX: R07.89 Other chest pain (principal); I25.110 Atherosclerotic heart disease of native coronary artery with unstable angina pectoris; Z95.5 Presence of coronary angioplasty implant and graft; I10 Essential (primary) hypertension; E78.5 Hyperlipidemia, unspecified; Z01.812 Encounter for preprocedural laboratory examination

== ENCOUNTER 2019-02-14 17:10 | Emergency (ER) | payer MEDICARE, OTHER ==
[~2019-02-14] VITALS: Ht 160 cm; Wt 78.2 kg
[2019-02-14 17:15] VITALS: Ht 160 cm; Wt 78.2 kg
[2019-02-14] MEDS ORDERED: TORADOL10 MG PO (19:43)
[2019-02-14 19:52] VITALS: BP 159/82
== END 2019-02-14 19:52 | disposition home or self-care (01) ==
LOC: D.ER 17:10
DX: S00.93XA Contusion of unspecified part of head, initial encounter (principal); M54.2 Cervicalgia; W07.XXXA Fall from chair, initial encounter

== ENCOUNTER 2019-03-08 10:52 | Inpatient (IN) | payer MEDICARE, OTHER ==
[~2019-03-08] VITALS: Ht 160 cm; Wt 73.5 kg
--- NOTE | ~2019-03-08 | EC ---
PATIENT:REBECA ANAYA DATE OF SERVICE: 03/08/19 SEX: F MEDICAL RECORD: [id number] DATE OF : 36 LOCATION:[facility] AGE OF PATIENT: 78 ADMISSION DATE: 03/08/19 REFERRING PHYSICIAN: INTERPRETING PHYSICIAN: WALTER ZABALA MD ECHOCARDIOGRAM REPORT ECHO CHARGES 4 ECHO COMPLETE Date: 03/08/19 CLINICAL DIAGNOSIS: SYNCOPE ECHOCARDIOGRAPHIC MEASUREMENTS (adult normal given) AC root (d.<3.7cm) 4.1 cm LV Septum d (<1.2 cm> 1.6 cm Valve Excursion 1.8 cm LV Septum (systole) 2.0 cm Left Atria (s.<4.0cm> 4.4 cm LVPW d(<1.2cm) 1.4 cm RV (d.<2.3cm) 2.3 cm LVPW (sytole) 2.0 cm LV diastole(<5.6CM) 5.2 cm MV E-F(>70mm/sec) cm LV systole 3.1 cm LVOT Diameter 2.0 cm MV exc.(>10mm) cm Est.ejection fraction (50-75%) % DOPPLER: LVIT cm/sec A 76.0 cm/sec E 35.0 cm/sec LA cm/sec RVSP 27.0 mmHg LVOT 68.0 cm/sec AOP1/2T 797.0m/s Asc. Ao 121 cm/sec RVOT 51.0 cm/sec RA cm/sec PA 85.0 cm/sec AV Gradient Peak 5.8 mmHg AV Mean 3.0 mmHg AV Area 1.8 cm MV Gradient Peak 3.0 mmHg MV Mean 0.83 mmHg MV Area cm COMMENTS: Facility Coordinator: Robert HORTONDSOE Research Study Assistant: 1 Dr. Zabala TAPE# PACS Pericardial Effusion N DATE OF SERVICE: ECHOCARDIOGRAM FINDINGS: 1. Left ventricular chamber size is within normal limits. Left ventricular systolic function is lower limits of normal to mildly depressed at 45% to 50%. 2. Left atrium is enlarged at 4.4 cm. Right atrium and right ventricle chamber sizes are as well mildly dilated. 3. Valvular structures have normal structure and motion. ECHOCARDIOGRAM REPORT [id number] REBECA ANAYA 4. Doppler interrogation reveals moderate mitral regurgitation, mild tricuspid regurgitation, no other valvular insufficiency or stenosis. Pulmonary systolic pressure estimated at 27 mmHg. 5. No evidence of pericardial effusion or left ventricular thrombus. TRANSINT:[id number] Voice Confirmation ID: [id number] DOCUMENT ID: [id number] WALTER ZABALA MD CC: [id number] DICTATION DATE: 03/09/19 1315 CHEMIST INSTRUMENTATION: 03/09/19 1528 ADM IN [facility] [address] [place] [address]
[~2019-03-08 10:52] MED LIST changes: +TORADOL10 MG PO
[2019-03-08 11:52] LABS: BASOPHILS 0.4 % (0-2); EOSINOPHILS 3.4 % (0-7); HEMATOCRIT 43.6 % (36.0-48.0); HEMOGLOBIN 14.2 g/dL (12-16); IMMATURE GRANULOCYTES 0.2 % (0-5); LYMPHOCYTES 22.7 % (15-50); MCH 32.9 pg (26.0-34.0); MCHC 32.6 g/dL (31.0-37.0); MCV 101.2 fL (80.0-100.0); MEAN PLATELET VOLUME 10.3 fL (7.4-10.4); MONOCYTES 6.6 % (2-11); NEUTROPHILS 66.7 % (40-80); RBC 4.31 10x6/uL (4.00-5.40); RDW 14.3 % (11.5-14.5); WBC 5.6 10x3/uL (4.8-10.8)
[2019-03-08 11:55] LABS: PLATELET COUNT 189 10x3/uL (130-400)
[2019-03-08 12:00] LABS: CALC OSMOLALITY 286 mosm/kg (275-300); CALCIUM 9.4 mg/dL (8.5-10.1); CARBON DIOXIDE 31.3 mmol/L (21.0-32.0); CHLORIDE - SERUM 104 mmol/L (98-107); CREATININE - SERUM 0.9 mg/dL (0.6-1.3); GLUCOSE 92 mg/dL (74-106); POTASSIUM - SERUM 3.8 mmol/L (3.5-5.1); SODIUM 142 mmol/L (136-145); UREA NITROGEN 24 mg/dL (7-18); eGFR NON AFRICAN AMERICAN 64 mL/min (90-120)
[2019-03-08 12:10] LABS: APPEARANCE CLEAR (CLEAR); BILIRUBIN NEGATIVE (NEGATIVE); COLOR YELLOW (YELLOW); GLUCOSE NEGATIVE (NEGATIVE); KETONE NEGATIVE (NEGATIVE); NITRITE NEGATIVE (NEGATIVE); PROTEIN NEGATIVE (NEGATIVE); UROBILINOGEN NORMAL (NORMAL)
[2019-03-08 12:15] LABS: ALBUMIN 3.7 g/dL (3.4-5.0); ALKALINE PHOSPHATASE 97 U/L (46-116); ALT (SGPT) 23 U/L (10-68); BILIRUBIN - TOTAL 0.61 mg/dL (0.2-1.3); CKMB 0.8 U/L (0.0-3.6); CREATINE KINASE 57 UL (21-215); MAGNESIUM - SERUM 1.9 mg/dL (1.8-2.4); PROTEIN - SERUM 7.5 g/dL (6.4-8.2); THYROID STIMULATING HORMONE 21.09 uIU/mL (0.36-3.74); TROPONIN-I < 0.017 ng/mL (0.000-0.060)
[2019-03-08 12:36] VITALS: BP 186/90
[2019-03-08 12:44] LABS: INR 0.91 (0.85-1.17); PROTIME 11.8 SECONDS (11.6-15.0)
[2019-03-08 13:16] LABS: UDS - AMPHET NEGATIVE QUAL (NEGATIVE); UDS - BARB NEGATIVE QUAL (NEGATIVE); UDS - BENZO NEGATIVE QUAL (NEGATIVE); UDS - COCAINE NEGATIVE QUAL (NEGATIVE); UDS - OPIATE NEGATIVE QUAL (NEGATIVE); UDS - PCP NEGATIVE QUAL (NEGATIVE); UDS - THC NEGATIVE QUAL (NEGATIVE)
[2019-03-08 13:45] VITALS: BP 174/86
[2019-03-08 15:28] VITALS: BP 194/84; BMI 28.5
[2019-03-08 16:13] VITALS: BP 163/79
[2019-03-08 16:18] LABS: CKMB 0.6 U/L (0.0-3.6); CREATINE KINASE 56 UL (21-215); TROPONIN-I 0.025 ng/mL (0.000-0.060)
[2019-03-08] MEDS ORDERED: MYRBETRIQ25 MG PO (18:18)
[2019-03-08] MEDS ORDERED: K-DUR20 MEQ PO (18:27)
--- NOTE | 2019-03-08 19:05 | NUR ---
BEDSIDE REPORT RECEIVED FROM ANTONIO ARBOLEDA.
--- NOTE | 2019-03-08 19:30 | NUR ---
ASSESSMENT COMPLETE. PATIENT ALERT AND ORIENTED TO SITUATION, PLACE, SELF BUT NOT TIME. PATIENT HAS LEFT AC IV THAT IS INFUSING NS @ 75. PATIENT CAN GET UP WITH ASSISTANCE BUT HAS UNSTEADY GATE. BRUISING NOTED TO LOWER BACK HEMATOMA TO THE LEFT SIDE BACK OFHEAD. SCD'S AND BLUE SOCKS ON. YELLOW GOWN AND YELLOW BRACELET ON. DENIES PAIN OR DISCOMFORT AT THIS TIME. CALL LIGHT IN REACH.
[2019-03-08 20:00] VITALS: BP 116/68; BP 137/66
[2019-03-08 21:59] LABS: CKMB 0.4 U/L (0.0-3.6); CREATINE KINASE 50 UL (21-215); TROPONIN-I 0.031 ng/mL (0.000-0.060)
--- NOTE | 2019-03-08 22:00 | NUR ---
PROVIDED WITH HS SNACK PER REQUEST. MILK, ANEESH CRACKERS, AND CHOCOLATE PUDDING. CALL LIGHT REMAINS IN REACH. DENIES FURTHER ISSUES AT THIS TIME. CPOC.
[2019-03-09] VITALS: BP 153/82
--- NOTE | 2019-03-09 02:40 | NUR ---
PROVIDED WITH TYLENOL FOR GENERALIZED ACHES AND PAIN.
--- NOTE | 2019-03-09 03:00 | NUR ---
I have reviewed this patient and I concur with the Shift Assessment completed by the Licensed Practical Nurse today this shift.
[2019-03-09 04:00] VITALS: BP 146/91
[2019-03-09 04:13] LABS: BASOPHILS 0.6 % (0-2); EOSINOPHILS 4.5 % (0-7); HEMATOCRIT 38.2 % (36.0-48.0); HEMOGLOBIN 12.3 g/dL (12-16); IMMATURE GRANULOCYTES 0.2 % (0-5); LYMPHOCYTES 25.2 % (15-50); MCH 32.7 pg (26.0-34.0); MCHC 32.2 g/dL (31.0-37.0); MCV 101.6 fL (80.0-100.0); MEAN PLATELET VOLUME 9.9 fL (7.4-10.4); NEUTROPHILS 59.5 % (40-80); PLATELET COUNT 171 10x3/uL (130-400); RBC 3.76 10x6/uL (4.00-5.40); RDW 14.4 % (11.5-14.5); WBC 4.9 10x3/uL (4.8-10.8)
[2019-03-09 04:42] LABS: ALBUMIN 2.9 g/dL (3.4-5.0); ALKALINE PHOSPHATASE 75 U/L (46-116); ALT (SGPT) 17 U/L (10-68); BILIRUBIN - TOTAL 0.29 mg/dL (0.2-1.3); CALC OSMOLALITY 283 mosm/kg (275-300); CALCIUM 8.3 mg/dL (8.5-10.1); CARBON DIOXIDE 27.3 mmol/L (21.0-32.0); CHLORIDE - SERUM 107 mmol/L (98-107); CKMB 0.5 U/L (0.0-3.6); CREATINE KINASE 46 UL (21-215); CREATININE - SERUM 0.9 mg/dL (0.6-1.3); GLUCOSE 94 mg/dL (74-106); MAGNESIUM - SERUM 1.8 mg/dL (1.8-2.4); POTASSIUM - SERUM 3.9 mmol/L (3.5-5.1); PROTEIN - SERUM 6.1 g/dL (6.4-8.2); SODIUM 141 mmol/L (136-145); TROPONIN-I 0.017 ng/mL (0.000-0.060); UREA NITROGEN 21 mg/dL (7-18); eGFR NON AFRICAN AMERICAN 64 mL/min (90-120)
--- NOTE | 2019-03-09 08:00 | NUR ---
ASSESSMENT PER FLOW SHEET. PT IS WITHOUT DISTRESS.FALL PREVENTION IN PLACE WITH BED ALARM
[2019-03-09 08:01] VITALS: BP 136/76
[2019-03-09 11:58] VITALS: BP 177/84
[2019-03-09 12:05] VITALS: Ht 160 cm; Wt 73.5 kg
[2019-03-09 16:56] VITALS: BP 169/87
--- NOTE | 2019-03-09 19:15 | NUR ---
BEDSIDE REPORT RECEIVED. SONS AT BEDSIDE. PATIENT DENIES ISSUES AT THIS TIME.
[2019-03-09 19:30] VITALS: BP 141/79
--- NOTE | 2019-03-09 19:40 | NUR ---
ASSESSMENT COMPLETE AND CHARTED.
--- NOTE | 2019-03-09 21:10 | NUR ---
ADMINISTERED HS MEDICATIONS. PROVIDED WITH HS SNACK-PUDDING, CHOCOLATE MILK, AND ANEESH CRACKERS PER REQUEST. SAT AND TALKED WITH PATIENT. DENIES FURTHER NEEDS. CALL LIGHT REMAINS IN REACH. CPOC.
--- NOTE | 2019-03-09 22:50 | NUR ---
ASSISTED TO THE BATHROOM. STANDBY ASSIST. RETURNED TO BED SAFELY. REAPPLIED ACD'S AND BED ALARM ON. CALL LIGHT IN REACH. CPOC.
[2019-03-10 00:30] VITALS: BP 120/66
--- NOTE | 2019-03-10 02:27 | NUR ---
RESTING ON RIGHT SIDE. IV REMAINS PATENT. CALL LIGHT IN REACH. SCD'S REMAIN IN PLACE AND BED ALARM ON. CPOC.
[2019-03-10 04:30] VITALS: BP 134/70
[2019-03-10 05:49] LABS: BASOPHILS 0.5 % (0-2); EOSINOPHILS 5.6 % (0-7); HEMOGLOBIN 11.4 g/dL (12-16); IMMATURE GRANULOCYTES 0.5 % (0-5); MCH 32.4 pg (26.0-34.0); MCHC 31.7 g/dL (31.0-37.0); MCV 102.3 fL (80.0-100.0); MEAN PLATELET VOLUME 10.1 fL (7.4-10.4); MONOCYTES 8.1 % (2-11); NEUTROPHILS 55.3 % (40-80); PLATELET COUNT 168 10x3/uL (130-400); RBC 3.52 10x6/uL (4.00-5.40); RDW 14.5 % (11.5-14.5); WBC 4.4 10x3/uL (4.8-10.8)
[2019-03-10 06:16] LABS: ALBUMIN 2.6 g/dL (3.4-5.0); ANION GAP 10.5 mmol/L (8-16); BILIRUBIN - TOTAL 0.26 mg/dL (0.2-1.3); CALCIUM 7.9 mg/dL (8.5-10.1); CARBON DIOXIDE 26.2 mmol/L (21.0-32.0); CREATININE - SERUM 0.8 mg/dL (0.6-1.3); MAGNESIUM - SERUM 1.6 mg/dL (1.8-2.4); POTASSIUM - SERUM 3.7 mmol/L (3.5-5.1); PROTEIN - SERUM 5.4 g/dL (6.4-8.2)
--- NOTE | 2019-03-10 07:25 | NUR ---
I have reviewed this patient and I concur with the Shift Assessment completed by the Licensed Practical Nurse today this shift.
[2019-03-10 08:40] VITALS: BP 150/77
[2019-03-10] MEDS ORDERED: LEVOTHYROXINE100 MCG PO (09:38)
--- NOTE | 2019-03-10 09:43 | NUR ---
OFFERED PT FLU SHOT PRIOR TO D/C. SHE DECLINED.
--- NOTE | 2019-03-10 09:59 | MORECARE ---
CASE MANAGEMENT DISCHARGE SUMMARY PATIENT: REBECA ANAYA UNIT: [id number] ADM DATE: 03/08/19 AGE: 78 : 38 SEX: F ROOM/BED: D.8489 AUTHOR: THERESADOC PHYSICIAN: REFERRING PHYSICIAN: RUPERT ROCK MD DATE OF SERVICE: 03/10/19 Discharge Plan Patient Name: REBECA ANAYA Facility: [facility]:[place] : 1940 Planned Disposition: Home Anticipated Discharge Date: 03/10/19 Discharge Date: Expected LOS: 2 Initial Reviewer: [email or web address] Initial Review Date: 03/09/2019 Generated: 03/10/19 10:58 am Comments DCP- Discharge Planning Updated by [email or web address]: Jessica Myles on 03/10/19 8:[address] Patient Name: REBECA ANAYA Admission Status: ER Accout number: [id number] Admission Date: 03-08-2019 : 1940 Admission Diagnosis: Attending: SHARMIN Current LOS: 2 Anticipated DC Date: 03-10-2019 Planned Disposition: Home Primary Insurance: MEDICARE A & B Discharge Planning Comments: CM met with patient at bedside after explaining CM role and obtaining verbal consent. CM discussed availability / needs of home health, REHAB and medical equipment. PATIENT DENIES ANY DISCHARGE NEEDS. HER SON STATES HIS BROTHER LIVES WITH HER AND HELPS TAKE CARE OF HER, DOES NOT WANT HH AT THIS TIME. CHOICE FORM FOR REFUSAL OF SERVICES SIGNED. Oil House Attendant: Jessica Myles DCPIA - Discharge Planning Initial Assessment Updated by [email or web address]: Jessica Myles on 03/10/19 9:54 am * Is the patient Alert and Oriented? Yes * PCP BESSIE * [facility] * Preadmission Environment Home with Family * ADLs Independent * Other Equipment CANE * Community resources currently utilized None * Additional services required to return to the preadmission environment? No * Can the patient safely return to the preadmission environment? Yes * Has this patient been hospitalized within the prior 30 days at any hospital? No Coverage Notice Reviewer: [id number] - Jessica Myles Notice Issued Date-Time: 03/10/2019 9:54 Notice Type: Patient Choice Letter Notice Delivered To: Patient Relationship to Patient: Transit Mixer Operator Name: Delivery Method: HAND - Hand Delivered Yadira Days: Prior Verbal Notification: Recipient Understood Notice: Yes Recipient Signature: Yes Med Rec Note Co-signed by Attending: Coverage Notice Comment: REFUSES HH, EQUIPMENT AND REHAB Patient Name: REBECA ANAYA Page [phone] at 0959 All edits/amendments must be made on the electronic document DICTATION DATE: 03/10/19957 VET ASSISTANT: VU 03/10/19957 RPT#: [id number] DC DATE: STATUS: ADM IN [facility] [address] [place] [address] END OF REPORT
--- NOTE | 2019-03-10 12:21 | NUR ---
DISCHARE INSTRUCTIONS,STATES UNDERSTANDING. IV DCD WITH CATH TIP INTACT. PT WANTS TO EAT LUNCH BEFORE GOING HOME
--- NOTE | 2019-03-17 16:19 | MORECARE ---
CASE MANAGEMENT DISCHARGE SUMMARY PATIENT: REBECA ANAYA UNIT: [id number] ADM DATE: 03/08/19 AGE: 78 : 36 SEX: F ROOM/BED: D.3780 AUTHOR: THERESADOC PHYSICIAN: REFERRING PHYSICIAN: RUPERT ROCK MD DATE OF SERVICE: 03/17/19 Discharge Plan Patient Name: REBECA ANAYA Facility: [facility]:[place] : 1940 Planned Disposition: Home Anticipated Discharge Date: 03/10/19 Discharge Date: 03/10/2019 Expected LOS: 2 Initial Reviewer: [email or web address] Initial Review Date: 03/09/2019 Generated: 03/17/19 5:18 pm Comments DCP- Discharge Planning Updated by [email or web address]: Jessica Myles on 03/10/19 8:[address] Patient Name: REBECA ANAYA Admission Status: ER Accout number: [id number] Admission Date: 03-08-2019 : 1940 Admission Diagnosis: Attending: SHARMIN Current LOS: 2 Anticipated DC Date: 03-10-2019 Planned Disposition: Home Primary Insurance: MEDICARE A & B Discharge Planning Comments: CM met with patient at bedside after explaining CM role and obtaining verbal consent. CM discussed availability / needs of home health, REHAB and medical equipment. PATIENT DENIES ANY DISCHARGE NEEDS. HER SON STATES HIS BROTHER LIVES WITH HER AND HELPS TAKE CARE OF HER, DOES NOT WANT HH AT THIS TIME. CHOICE FORM FOR REFUSAL OF SERVICES SIGNED. Lye Treater: Jessica Myles DCPIA - Discharge Planning Initial Assessment Updated by [email or web address]: Jessica Myles on 03/10/19 9:54 am * Is the patient Alert and Oriented? Yes * PCP BESSIE * [facility] * Preadmission Environment Home with Family * ADLs Independent * Other Equipment CANE * Community resources currently utilized None * Additional services required to return to the preadmission environment? No * Can the patient safely return to the preadmission environment? Yes * Has this patient been hospitalized within the prior 30 days at any hospital? No Coverage Notice Reviewer: [id number] - Jessica Myles Notice Issued Date-Time: 03/10/2019 9:54 Notice Type: Patient Choice Letter Notice Delivered To: Patient Relationship to Patient: Certified Public Accountant Name: Delivery Method: HAND - Hand Delivered Yadira Days: Prior Verbal Notification: Recipient Understood Notice: Yes Recipient Signature: Yes Med Rec Note Co-signed by Attending: Coverage Notice Comment: REFUSES HH, EQUIPMENT AND REHAB Last DP export: 03/10/19 8:59 a Patient Name: REBECA ANAYA Page [id number] at 1619 All edits/amendments must be made on the electronic document DICTATION DATE: 03/17/198 DATE PITTER: VU 03/17/198 RPT#: [id number] DC DATE:03/10/19 STATUS: DIS IN [facility] [address] [place] [address] END OF REPORT
== END 2019-03-10 12:47 | disposition home or self-care (01) | DRG 88 ==
LOC: D.ER 10:52 → D.MS 13:40
PROVIDERS: Family Medicine; ADMIT Family Medicine; ATTEND Family Medicine
DX: S06.0X9A Concussion with loss of consciousness of unspecified duration, initial encounter (principal); G93.41 Metabolic encephalopathy; J96.11 Chronic respiratory failure with hypoxia; Z91.81 History of falling; Y92.009 Unspecified place in unspecified non-institutional (private) residence as the place of occurrence of the external cause; E03.9 Hypothyroidism, unspecified; F03.90 Unspecified dementia, unspecified severity, without behavioral disturbance, psychotic disturbance, mood disturbance, and anxiety; I25.10 Atherosclerotic heart disease of native coronary artery without angina pectoris; I10 Essential (primary) hypertension; J44.9 Chronic obstructive pulmonary disease, unspecified; V00.811A Fall from moving wheelchair (powered), initial encounter

== ENCOUNTER 2019-04-16 14:32 | Emergency (ER) | payer MEDICARE, OTHER ==
[~2019-04-16] VITALS: Ht 152.4 cm; Wt 77.3 kg
[~2019-04-16 14:32] MED LIST changes: +K-DUR20 MEQ PO; +LEVOTHYROXINE100 MCG PO; +MYRBETRIQ25 MG PO
[2019-04-16 14:34] VITALS: Ht 152.4 cm; Wt 77.3 kg
[2019-04-16] MEDS ORDERED: ACETAMINOPHEN500 M1 PO (15:35)
[2019-04-16] MEDS ORDERED: IBUPROFEN800 MG PO (15:35)
--- NOTE | 2019-04-16 15:49 | NUR ---
DR. KING NOTIFIED AND REVIEWED PATIENT'S BEHAVIOR AND ASSESSMENT RESULTS. PATIENT IS A LOW RISK. SHE HAS A HISTORY OF DEPRESSION DUE TO SEVERAL DEATHS IN HER FAMILY. DR. KING STATED TO GIVE PATIENT RESOURCES. RESOURCES REVIEWED WITH PATIENT AND SHE VERBALIZED UNDERSTANDING.
[2019-04-16 17:25] VITALS: BP 175/65
== END 2019-04-16 17:26 | disposition home or self-care (01) ==
LOC: D.ER 14:32
DX: S00.03XA Contusion of scalp, initial encounter (principal); W08.XXXA Fall from other furniture, initial encounter; R51 Headache; M79.18 Myalgia, other site; M54.2 Cervicalgia; I10 Essential (primary) hypertension; Z95.5 Presence of coronary angioplasty implant and graft; M54.9 Dorsalgia, unspecified; K21.9 Gastro-esophageal reflux disease without esophagitis

== ENCOUNTER 2019-06-14 21:35 | Emergency (ER) | payer MEDICARE, OTHER ==
[~2019-06-14] VITALS: Ht 152.4 cm; Wt 75.0 kg
[~2019-06-14 21:35] MED LIST changes: +ACETAMINOPHEN500 M1 PO; +IBUPROFEN800 MG PO
[2019-06-14 21:38] VITALS: Ht 152.4 cm; Wt 75.0 kg
[2019-06-14 22:28] LABS: BASOPHILS 0.3 % (0-2); EOSINOPHILS 3.2 % (0-7); HEMATOCRIT 43.5 % (36.0-48.0); HEMOGLOBIN 14.2 g/dL (12-16); IMMATURE GRANULOCYTES 0.3 % (0-5); LYMPHOCYTES 21.9 % (15-50); MCH 32.3 pg (26.0-34.0); MCHC 32.6 g/dL (31.0-37.0); MCV 98.9 fL (80.0-100.0); MEAN PLATELET VOLUME 10.2 fL (7.4-10.4); NEUTROPHILS 68.3 % (40-80); PLATELET COUNT 189 10x3/uL (130-400); RDW 13.3 % (11.5-14.5); WBC 7.2 10x3/uL (4.8-10.8)
[2019-06-14 22:39] LABS: BILIRUBIN NEGATIVE (NEGATIVE); GLUCOSE NEGATIVE (NEGATIVE); KETONE NEGATIVE (NEGATIVE); NITRITE NEGATIVE (NEGATIVE); UROBILINOGEN NORMAL (NORMAL)
[2019-06-14 22:40] LABS: BACTERIA FEW /hpf (NEGATIVE); EPITHELIAL CELLS 0-5 /hpf (0-5); RED CELLS - URINE 0-5 /hpf (0-5); WHITE CELLS - URINE 0-5 /hpf (NEGATIVE)
[2019-06-14 22:41] LABS: ANION GAP 8.6 mmol/L (8-16); CALCIUM 9.5 mg/dL (8.5-10.1); CREATININE - SERUM 0.8 mg/dL (0.6-1.3); POTASSIUM - SERUM 3.6 mmol/L (3.5-5.1)
[2019-06-14 22:49] LABS: ALBUMIN 3.7 g/dL (3.4-5.0); BILIRUBIN - TOTAL 0.35 mg/dL (0.2-1.3); PROTEIN - SERUM 7.7 g/dL (6.4-8.2); TROPONIN-I 0.027 ng/mL (0.000-0.060)
[2019-06-14] MEDS ORDERED: MECLIZINE HCL25 MG PO (23:44)
[2019-06-14] MEDS ORDERED: ZOFRAN ODT4 MG/UDTAB PO (23:44)
[2019-06-14 23:55] VITALS: BP 172/80
== END 2019-06-14 23:55 | disposition home or self-care (01) ==
LOC: D.ER 21:35
PROVIDERS: Family Medicine
DX: R42 Dizziness and giddiness (principal); R11.2 Nausea with vomiting, unspecified; E07.9 Disorder of thyroid, unspecified; Z86.73 Personal history of transient ischemic attack (TIA), and cerebral infarction without residual deficits; I10 Essential (primary) hypertension; Z99.81 Dependence on supplemental oxygen; K21.9 Gastro-esophageal reflux disease without esophagitis

== ENCOUNTER 2019-08-12 08:32 | Emergency (ER) | payer MEDICARE, OTHER ==
[~2019-08-12] VITALS: Ht 152.4 cm; Wt 77.3 kg
[~2019-08-12 08:32] MED LIST changes: +MECLIZINE HCL25 MG PO; +ZOFRAN ODT4 MG/UDTAB PO
[2019-08-12 08:33] VITALS: Ht 152.4 cm; Wt 77.3 kg
[2019-08-12] MEDS ORDERED: PLAVIX75 MG PO (08:37)
[2019-08-12 10:43] LABS: ANION GAP 9.2 mmol/L (8-16); CALCIUM 8.8 mg/dL (8.5-10.1); CARBON DIOXIDE 29.9 mmol/L (21.0-32.0); CREATININE - SERUM 0.8 mg/dL (0.6-1.3); POTASSIUM - SERUM 4.1 mmol/L (3.5-5.1)
[2019-08-12 10:52] LABS: ALBUMIN 3.1 g/dL (3.4-5.0); BILIRUBIN - TOTAL 0.65 mg/dL (0.2-1.3); PROTEIN - SERUM 6.6 g/dL (6.4-8.2)
[2019-08-12 11:24] LABS: BASOPHILS 0.2 % (0-2); EOSINOPHILS 1.5 % (0-7); HEMOGLOBIN 12.5 g/dL (12-16); IMMATURE GRANULOCYTES 0.3 % (0-5); MCH 32.2 pg (26.0-34.0); MCHC 32.1 g/dL (31.0-37.0); MCV 100.5 fL (80.0-100.0); MEAN PLATELET VOLUME 10.1 fL (7.4-10.4); MONOCYTES 8.5 % (2-11); NEUTROPHILS 80.5 % (40-80); PLATELET COUNT 200 10x3/uL (130-400); RBC 3.88 10x6/uL (4.00-5.40); RDW 13.9 % (11.5-14.5); WBC 8.8 10x3/uL (4.8-10.8)
[2019-08-12 11:34] LABS: GLUCOSE NEGATIVE (NEGATIVE); NITRITE NEGATIVE (NEGATIVE)
[2019-08-12 11:35] LABS: BILIRUBIN NEGATIVE (NEGATIVE); KETONE NEGATIVE (NEGATIVE)
[2019-08-12] MEDS ORDERED: ULTRAM50 MG PO (12:47)
[2019-08-12 13:40] VITALS: BP 138/73
== END 2019-08-12 13:43 | disposition home or self-care (01) ==
LOC: D.ER 08:32
PROVIDERS: Family Medicine
DX: G89.29 Other chronic pain (principal); M54.9 Dorsalgia, unspecified; W19.XXXA Unspecified fall, initial encounter; Y93.9 Activity, unspecified; Y92.9 Unspecified place or not applicable; R07.81 Pleurodynia; M54.2 Cervicalgia; R07.9 Chest pain, unspecified; Z86.73 Personal history of transient ischemic attack (TIA), and cerebral infarction without residual deficits; E07.9 Disorder of thyroid, unspecified; I10 Essential (primary) hypertension

== ENCOUNTER 2020-07-26 02:13 | Emergency (ER) | payer MEDICARE, OTHER ==
[~2020-07-26] VITALS: Ht 152.4 cm; Wt 79.4 kg
[~2020-07-26 02:13] MED LIST changes: +ULTRAM50 MG PO
[2020-07-26 02:23] VITALS: Ht 152.4 cm; Wt 79.4 kg
[2020-07-26 02:57] LABS: BASOPHILS 0.4 % (0-2); EOSINOPHILS 1.9 % (0-7); HEMATOCRIT 43.3 % (36.0-48.0); HEMOGLOBIN 14.2 g/dL (12-16); IMMATURE GRANULOCYTES 0.3 % (0-5); LYMPHOCYTES 31.4 % (15-50); MCH 31.3 pg (26.0-34.0); MCHC 32.8 g/dL (31.0-37.0); MCV 95.4 fL (80.0-100.0); MEAN PLATELET VOLUME 10.7 fL (7.4-10.4); MONOCYTES 6.7 % (2-11); NEUTROPHIL ABS# 4.15 10x3/uL (1.56-6.13); NEUTROPHILS 59.3 % (40-80); PLATELET COUNT 182 10x3/uL (130-400); RBC 4.54 10x6/uL (4.00-5.40); RDW 13.5 % (11.5-14.5)
[2020-07-26 03:05] LABS: APTT 28.2 SECONDS (22.8-39.4); PROTIME 12.2 SECONDS (11.6-15.0)
[2020-07-26 03:12] LABS: CALC OSMOLALITY 280 mosm/kg (275-300); CARBON DIOXIDE 29.7 mmol/L (21.0-32.0); CHLORIDE - SERUM 103 mmol/L (98-107); CREATININE - SERUM 0.8 mg/dL (0.6-1.3); GLUCOSE 81 mg/dL (74-106); SODIUM 140 mmol/L (136-145); UREA NITROGEN 21 mg/dL (7-18); eGFR NON AFRICAN AMERICAN 73 mL/min (90-120)
[2020-07-26 03:27] LABS: ALBUMIN 3.6 g/dL (3.4-5.0); ALKALINE PHOSPHATASE 99 U/L (30-120); ALT (SGPT) 13 U/L (10-68); BILIRUBIN - TOTAL 0.41 mg/dL (0.2-1.3); CKMB 1.4 U/L (0.0-3.6); CREATINE KINASE 47 UL (21-215); MAGNESIUM - SERUM 1.8 mg/dL (1.8-2.4); PRO BNP 863 pg/mL (0-450); PROTEIN - SERUM 7.2 g/dL (6.4-8.2); THYROID STIMULATING HORMONE 26.19 uIU/mL (0.36-3.74); TROPONIN-I 0.036 ng/mL (0.000-0.060)
[2020-07-26 03:38] LABS: T4 THYROXIN - FREE 0.92 ng/dL (0.76-1.46); T4 THYROXINE 8.1 ug/dL (4.7-13.3)
[2020-07-26] MEDS ORDERED: MEDROL DOSE PACK4 MG PO (04:54)
[2020-07-26] MEDS ORDERED: ALBUTEROL SULF8.5 GM INH (05:41)
[2020-07-26 05:50] VITALS: BP 128/55
== END 2020-07-26 05:51 | disposition home or self-care (01) ==
LOC: D.ER 02:13
PROVIDERS: Emergency Medicine
DX: J45.901 Unspecified asthma with (acute) exacerbation (principal); E03.9 Hypothyroidism, unspecified; Z86.73 Personal history of transient ischemic attack (TIA), and cerebral infarction without residual deficits; I10 Essential (primary) hypertension

== ENCOUNTER 2020-10-02 17:29 | Emergency (ER) | payer MEDICARE, OTHER ==
[~2020-10-02] VITALS: Ht 152.4 cm; Wt 84.1 kg
[~2020-10-02 17:29] MED LIST changes: +ALBUTEROL SULF8.5 GM INH; +MEDROL DOSE PACK4 MG PO
[2020-10-02 17:35] VITALS: BP 162/84; Ht 152.4 cm; Wt 84.1 kg
[2020-10-02 18:40] LABS: BASOPHILS 0.8 % (0-2); EOSINOPHILS 4.1 % (0-7); HEMATOCRIT 40.6 % (36.0-48.0); HEMOGLOBIN 13.1 g/dL (12-16); LYMPHOCYTES 20.7 % (15-50); MCH 31.5 pg (26.0-34.0); MCHC 32.3 g/dL (31.0-37.0); MCV 97.3 fL (80.0-100.0); MEAN PLATELET VOLUME 8.1 fL (7.4-10.4); MONOCYTES 9.1 % (2-11); NEUTROPHILS 65.3 % (40-80); PLATELET COUNT 178 10x3/uL (130-400); RBC 4.17 10x6/uL (4.00-5.40); RDW 15.8 % (11.5-14.5); WBC 5.5 10x3/uL (4.8-10.8)
[2020-10-02 18:44] LABS: CALC OSMOLALITY 290 mosm/kg (275-300); CALCIUM 9.1 mg/dL (8.5-10.1); CARBON DIOXIDE 25.8 mmol/L (21.0-32.0); CHLORIDE - SERUM 109 mmol/L (98-107); CREATININE - SERUM 0.7 mg/dL (0.6-1.3); GLUCOSE 98 mg/dL (74-106); SODIUM 144 mmol/L (136-145); UREA NITROGEN 24 mg/dL (7-18); eGFR NON AFRICAN AMERICAN 85 mL/min (90-120)
[2020-10-02 19:02] LABS: ALBUMIN 3.5 g/dL (3.4-5.0); ALKALINE PHOSPHATASE 91 U/L (30-120); ALT (SGPT) 21 U/L (10-68); BILIRUBIN - TOTAL 0.47 mg/dL (0.2-1.3); CREATINE KINASE 70 UL (21-215); MAGNESIUM - SERUM 1.9 mg/dL (1.8-2.4); PROTEIN - SERUM 6.8 g/dL (6.4-8.2); TROPONIN-I 0.044 ng/mL (0.000-0.060)
== END 2020-10-02 21:32 | disposition home or self-care (01) ==
LOC: D.ER 17:29
PROVIDERS: Family Medicine
DX: M79.675 Pain in left toe(s) (principal); F41.9 Anxiety disorder, unspecified; R06.02 Shortness of breath; I10 Essential (primary) hypertension; Z86.73 Personal history of transient ischemic attack (TIA), and cerebral infarction without residual deficits